=== PATIENT | female | born 1960 | race Asian ===

== ENCOUNTER → 2016-11-15 | Outpatient (CLI) | payer BC | END | disposition home or self-care (01) | LOC: GMAB 10:35 | PROVIDERS: ATTEND Family Medicine | DX: Z00.00 Encounter for general adult medical examination without abnormal findings (principal) ==

== ENCOUNTER 2016-12-05 21:16 | Emergency (ER) | payer BC ==
--- NOTE | 2016-12-05 21:52 | ED.PDOC ---
History of Present Illness - General Chief Complaint: General Stated Complaint: general weakness Time Seen by Provider: 12/05/16 21:46 Source: patient, family Exam Limitations: no limitations - History of Present Illness Initial Comments: Patient presents with generalized weakness and fatigue for the past 2-3 hours. It started after she had dinner. She says it is all over her body. She has no pain complaints. No previous hx of this. Was just recently treated for a UTI with Macrobid. Her only other medication is progesterone. No other complaints. Timing/Duration: 1-3 hours Severity: mild Improving Factors: nothing Worsening Factors: nothing Associated Symptoms: denies symptoms Allergies/Adverse Reactions: Allergies NO KNOWN ALLERGY Allergy (Verified 12/05/16 22:11) Home Medications: Ambulatory Orders Nitrofurantoin Monohydrate Mac [Macrobid] 100 mg PO BID 12/05/16 Progesterone Micronized [Progesterone] 100 mg PO DAILY 12/05/16 Review of Systems - Review of Systems Constitutional: States: see HPI EENTM: States: no symptoms reported Respiratory: States: no symptoms reported Cardiology: States: no symptoms reported Gastrointestinal/Abdominal: States: no symptoms reported Genitourinary: States: no symptoms reported Musculoskeletal: States: no symptoms reported Skin: States: no symptoms reported Neurological: States: no symptoms reported Endocrine: States: no symptoms reported Hematologic/Lymphatic: States: no symptoms reported Past Medical History (General) - Patient Medical History Hx Congestive Heart Failure: No Hx Diabetes: No Family Medical History - Family History Mother Family History: Unknown Physical Exam - Physical Exam General Appearance: Alert Eye Exam: bilateral normal Ears, Nose, Throat: normal ENT inspection Neck: non-tender, full range of motion, supple Respiratory: lungs clear Cardiovascular/Chest: normal peripheral pulses, regular rate, rhythm Gastrointestinal/Abdominal: normal bowel sounds, non tender, soft Extremity: normal range of motion 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 Patient was on day 6/7 of Macrobid and her sx matched some common side effects. She was told that if her sx did not clear up 48 hours after her last dose, to see her regular doctor. Laboratory Tests 12/05/16 12/05/16 12/05/16 21:57 21:57 21:57 WBC 5.6 RBC 4.43 Hgb 13.6 Hct 40.2 MCV 90.9 MCH 30.7 MCHC 33.8 RDW 11.9 Plt Count 205 MPV 8.6 Absolute Neuts (auto) 3.20 Absolute Lymphs (auto) 1.50 Absolute Monos (auto) 0.60 Absolute Eos (auto) 0.20 Absolute Basos (auto) 0.10 Neutrophils % 56.9 Lymphocytes % 26.3 Monocytes % 11.6 H Eosinophils % 4.2 Basophils % 1.0 Sodium 141 Potassium 3.6 Chloride 105 Carbon Dioxide 27 Anion Gap 12.6 BUN 13 Creatinine 0.63 BUN/Creatinine Ratio 20.6 H Random Glucose 116 H Hemoglobin A1c 4.9 Serum Osmolality 282.3 Calcium 9.0 Total Bilirubin 0.6 AST 25 ALT 16 Alkaline Phosphatase 50 Serum Total Protein 7.4 Albumin 4.3 Globulin 3.1 Albumin/Globulin Ratio 1.4 TSH 4.08 Urine Color Urine Appearance Urine pH Ur Specific [place] Urine Protein Urine Glucose (UA) Urine Ketones Urine Blood Urine Nitrite Urine Bilirubin Urine Urobilinogen Ur Leukocyte Esterase Urine RBC Urine WBC Ur Epithelial Cells Urine Bacteria 12/05/16 22:30 WBC RBC Hgb Hct MCV MCH MCHC RDW Plt Count MPV Absolute Neuts (auto) Absolute Lymphs (auto) Absolute Monos (auto) Absolute Eos (auto) Absolute Basos (auto) Neutrophils % Lymphocytes % Monocytes % Eosinophils % Basophils % Sodium Potassium Chloride Carbon Dioxide Anion Gap BUN Creatinine BUN/Creatinine Ratio Random Glucose Hemoglobin A1c Serum Osmolality Calcium Total Bilirubin AST ALT Alkaline Phosphatase Serum Total Protein Albumin Globulin Albumin/Globulin Ratio TSH Urine Color Yellow Urine Appearance Clear Urine pH 7.0 Ur Specific [place] 1.015 Urine Protein Negative Urine Glucose (UA) Negative Urine Ketones Negative Urine Blood Moderate H Urine Nitrite Negative Urine Bilirubin Negative Urine Urobilinogen 0.2 Ur Leukocyte Esterase Negative Urine RBC 3-5 H Urine WBC 0-1 Ur Epithelial Cells 0 Urine Bacteria Rare Departure - Departure Clinical Impression: Medication adverse effect Disposition: Discharge to Home or Self Care Condition: Good Diet: resume usual diet Activity: increase activity as tolerated Referrals: Thanh Miller MD [Primary Care Provider] - 1-2 Weeks Home Medications: Ambulatory Orders Nitrofurantoin Monohydrate Mac [Macrobid] 100 mg PO BID 12/05/16 Progesterone Micronized [Progesterone] 100 mg PO DAILY 12/05/16 Additional Instructions: If symptoms do not resolve within 48 hours after your last dose of nitrofurantoin, see your regular doctor for further evaluation.
[2016-12-05 22:11] VITALS: O2SAT 99
[2016-12-05 23:38] VITALS: BP 119/78; TEMP 97.9
== END 2016-12-05 23:25 | disposition home or self-care (01) ==
LOC: ER 21:16
DX: R53.1 Weakness (principal); T37.8X5A Adverse effect of other specified systemic anti-infectives and antiparasitics, initial encounter; Y92.9 Unspecified place or not applicable

== ENCOUNTER → 2018-01-06 | Outpatient (CLI) | payer BC | LOC: GMAE 10:43 | PROVIDERS: ATTEND Family Medicine | DX: Z00.00 Encounter for general adult medical examination without abnormal findings (principal) ==

== ENCOUNTER → 2019-04-06 | Outpatient (CLI) | payer BC | LOC: GMAE 11:11 | PROVIDERS: ATTEND Family Medicine | DX: Z00.00 Encounter for general adult medical examination without abnormal findings (principal) ==

== ENCOUNTER → 2020-03-03 | Outpatient (CLI) | payer OTHER | LOC: GMAE 14:31 | PROVIDERS: ATTEND Family Medicine | DX: Z13.29 Encounter for screening for other suspected endocrine disorder (principal); Z79.899 Other long term (current) drug therapy; E78.5 Hyperlipidemia, unspecified ==